=== PATIENT | female | born 1975 | race Caucasian/White ===

== ENCOUNTER 2017-06-25 19:22 | Emergency (ER) | payer BC ==
[~2017-06-25] VITALS: Ht 165.1 cm; Wt 128.9 kg
[~2017-06-25 19:22] MED LIST: BACTRIM,SEPT1 TABLET PO; CARAFATE1 GM PO; CLINDAMYCIN HC300 MG PO; COLACE100 MG PO; COUMADIN5 MG PO; DEPO-PROVER150 MG/ML IM; DEXAMETHASONE4 MG PO; DEXILANT60 MG PO; DIFLUCAN150 MG PO; FLEXERIL10 MG PO; HYDROCHLOROTHIA25 MG PO; HYDROCHLOROTHIA50 MG PO; IRON PO; IRON325 M1 PO; METFORMIN HCL500 MG PO; MOBIC7.5 MG PO; MONISTAT 7 COM1 EACH VG; MUCUS ER600 MG PO; NAPROSYN500 MG PO; NEXIUM40 MG PO; NIFEDIPINE ER60 MG PO; NOHOMEMEDS; PERCOCET 5/31 TABLET PO; TYLENOL WITH C1 EACH PO; VAGISTAT-31 EACH VG; VITAMIN D35000 UNIT PO; ZOFRAN ODT4 MG PO; ZOLOFT100 MG PO; ZOLOFT50 MG PO
[2017-06-25 19:27] VITALS: BP 113/81
[2017-06-25] MEDS ORDERED: NORCO 5/3251 TABLET PO (19:55)
[2017-06-25] MEDS ORDERED: AUGMENTIN875 MG PO (19:55)
== END 2017-06-25 20:44 | disposition home or self-care (01) ==
LOC: EME 19:22
DX: K11.20 Sialoadenitis, unspecified (principal)
CPT/HCPCS: 99281; 99283

== ENCOUNTER 2017-12-14 18:36 | Emergency (ER) | payer BC, OTHER ==
[~2017-12-14] VITALS: Ht 165.1 cm; Wt 122.9 kg
[~2017-12-14 18:36] MED LIST changes: +AUGMENTIN875 MG PO; +NORCO 5/3251 TABLET PO
[2017-12-14 20:11] LABS: HEMATOCRIT 45.9 % (36.0-46.0); HEMOGLOBIN 16.4 G/DL (11.9-15.5); MCH 30.9 PG (29.0-34.0); MCHC 35.7 G/DL (30.0-36.0); MCV 86.4 FL (83-99); PLATELET COUNT 273 K/uL (156-360); RBC DIS.WIDTH-SD 40.6 % (39-53); RED BLOOD COUNT 5.31 M/uL (3.80-5.20); WHITE BLOOD COUNT 17.6 K/uL (4.1-10.2)
[2017-12-14 20:19] LABS: ALBUMIN 4.4 g/dL (3.2-4.8); CHLORIDE 105 mEq/L (99-109); POTASSIUM 3.1 mEq/L (3.7-5.4)
[2017-12-14 20:20] LABS: SODIUM 142 mEq/L (136-147)
[2017-12-14 20:22] LABS: GLUCOSE 114 mg/dL (70-99); TOTAL PROTEIN 7.8 g/dL (6.4-8.3)
[2017-12-14 20:24] LABS: TOTAL BILIRUBIN 0.7 mg/dL (0.0-1.0)
[2017-12-14 20:25] LABS: ALKALINE PHOSPHATASE 74 IU/L (3-129); CREATININE 0.9 mg/dL (0.6-1.3); GFR ESTIMATE (CALCULATED) > 59 mL/min/
[2017-12-14 20:27] LABS: AST (GOT) 15 IU/L (2-34); UREA NITROGEN (BUN) 10 mg/dL (9-23)
[2017-12-14 20:28] LABS: ALT (GPT) 19 IU/L (3-49)
[2017-12-14] MEDS ORDERED: PRINIVIL10 MG PO (22:01)
[2017-12-14] MEDS ORDERED: ADVIL200 MG PO (22:02)
[2017-12-14] MEDS ORDERED: TAMIFLU75 MG PO (22:02)
[2017-12-14] MEDS ORDERED: [UNRECOGNIZED DRUG - OTHER] PO (22:06)
[2017-12-14] MEDS ORDERED: MOTRIN800 MG PO (22:14)
[2017-12-14] MEDS ORDERED: AUGMENTIN875 MG PO (22:14)
[2017-12-14] MEDS ORDERED: PERCOCET 5/31 TABLET PO (22:14)
[2017-12-14 22:40] VITALS: BP 115/86
== END 2017-12-14 22:40 | disposition home or self-care (01) ==
LOC: EME 18:36
PROVIDERS: Physician Assistant
DX: K11.21 Acute sialoadenitis (principal); L03.211 Cellulitis of face; E11.9 Type 2 diabetes mellitus without complications; I10 Essential (primary) hypertension; Z79.84 Long term (current) use of oral hypoglycemic drugs; F17.200 Nicotine dependence, unspecified, uncomplicated
CPT/HCPCS: 70487; 80053; 83605; 85027; 87040; 99281; 99284; J0696; J2270; J3010; J7030

== ENCOUNTER 2017-12-15 12:58 | Emergency (ER) | payer OTHER, BC ==
[~2017-12-15] VITALS: Ht 165.1 cm; Wt 123.2 kg
[~2017-12-15 12:58] MED LIST changes: +ADVIL200 MG PO; +MOTRIN800 MG PO; +PRINIVIL10 MG PO; +TAMIFLU75 MG PO; +[UNRECOGNIZED DRUG - OTHER] PO
[2017-12-15 13:48] LABS: HEMATOCRIT 42.8 % (36.0-46.0); HEMOGLOBIN 15.3 G/DL (11.9-15.5); MCH 30.9 PG (29.0-34.0); MCHC 35.7 G/DL (30.0-36.0); MCV 86.5 FL (83-99); PLATELET COUNT 253 K/uL (156-360); RBC DIS.WIDTH-CV 13.1 % (11.8-14.6); RBC DIS.WIDTH-SD 41.1 % (39-53); RED BLOOD COUNT 4.95 M/uL (3.80-5.20); WHITE BLOOD COUNT 11.5 K/uL (4.1-10.2)
[2017-12-15 13:58] LABS: ALBUMIN 4.1 g/dL (3.2-4.8); CHLORIDE 110 mEq/L (99-109); POTASSIUM 3.2 mEq/L (3.7-5.4); SODIUM 141 mEq/L (136-147)
[2017-12-15 14:00] LABS: GLUCOSE 130 mg/dL (70-99); TOTAL PROTEIN 7.4 g/dL (6.4-8.3)
[2017-12-15 14:04] LABS: ALKALINE PHOSPHATASE 82 IU/L (3-129); CREATININE 0.8 mg/dL (0.6-1.3); GFR ESTIMATE (CALCULATED) > 59 mL/min/
[2017-12-15 14:05] LABS: UREA NITROGEN (BUN) 8 mg/dL (9-23)
[2017-12-15 14:06] LABS: AST (GOT) 45 IU/L (2-34)
[2017-12-15 14:08] LABS: ALT (GPT) 59 IU/L (3-49)
[2017-12-15 15:17] VITALS: BP 133/72
== END 2017-12-15 15:17 | disposition home or self-care (01) ==
LOC: EME 12:58
PROVIDERS: Nurse Practitioner Family
DX: L03.211 Cellulitis of face (principal); K11.20 Sialoadenitis, unspecified; F17.200 Nicotine dependence, unspecified, uncomplicated; E11.9 Type 2 diabetes mellitus without complications; I10 Essential (primary) hypertension; K21.9 Gastro-esophageal reflux disease without esophagitis
CPT/HCPCS: 80053; 85027; 87040; 99281; 99283; J1885; J2270; J2405